=== PATIENT | female | born 1965 | race American Indian/Alaskan Native ===

== ENCOUNTER 2016-10-19 12:50 | Emergency (ER) | payer OTHER ==
[2016-10-19 13:14] VITALS: BP 164/103
[2016-10-19 13:43] LABS: Basophils % (Auto) 0.4 % (0.0-1.8); Eosinophils % (Auto) 0.7 % (0.0-4.3); Mean Corpuscular HGB Conc 33 % (30-34); Mean Corpuscular Hemoglobin 32 pg (28-32); Mean Corpuscular Volume 96 fl (79-97); Platelet Count 205 K/mm3 (140-440); Red Blood Count 3.77 M/mm3 (3.65-5.03); Red Cell Distribution Width 12.1 % (13.2-15.2); White Blood Count 6.2 K/mm3 (4.5-11.0)
[2016-10-19 13:55] LABS: Anion Gap 18 mmol/L; Blood Urea Nitrogen 12 mg/dL (7-17); Calcium 9.2 mg/dL (8.4-10.2); Carbon Dioxide 22 mmol/L (22-30); Chloride 104.1 mmol/L (98-107); Glucose 120 mg/dL (65-100); Potassium 3.6 mmol/L (3.6-5.0); Sodium 140 mmol/L (137-145)
--- NOTE | 2016-10-19 14:24 | XRay Report ---
CHEST 2 VIEWS INDICATION: Shortness of breath. COMPARISON: None similar at this institution. FINDINGS: PA and lateral chest radiographs demonstrate normal cardiomediastinal silhouette. Clear lungs. Intact bones. CONCLUSION: No acute disease in the chest. Thank you for the opportunity to participate in this patient's care.
== END 2016-10-19 13:23 | disposition left against medical advice (07) ==
LOC: ED 12:50
DX: R07.9 Chest pain, unspecified (principal); Z53.21 Procedure and treatment not carried out due to patient leaving prior to being seen by health care provider
CPT/HCPCS: 36415; 71020; 80048; 84484; 85025; 85379; 85610; 93005; 93010